=== PATIENT | female | born 1995 | race Two or more races ===

== ENCOUNTER → 2018-04-20 | Outpatient (CLI) | payer BC, OTHER ==
[~2018-04-20] MED LIST: DESO1TAB35 PO
== END ==
LOC: STAR 08:09
PROVIDERS: ATTEND Surgery
DX: Z02.9 Encounter for administrative examinations, unspecified (principal)

== ENCOUNTER 2018-04-27 05:34 | Day surgery (SDC) | payer BC, OTHER ==
[~2018-04-27] VITALS: Ht 170.2 cm; Wt 117.0 kg
[2018-04-27] MEDS ORDERED: LACTATED RINGERS 1,000 ML IV SCH (06:10)
[2018-04-27] MEDS ORDERED: EPINEPHRINE 1 MG/ML, 1ML ONE (06:19)
[2018-04-27] MEDS ORDERED: BUPIVACAINE/PF 0.5% ONE (06:19)
[2018-04-27 06:47] LABS: HCG UR SG 1.022 (1.003-1.030)
[2018-04-27] MEDS ORDERED: ONDANSETRON ODT 8 MG PO ONE (08:00)
[2018-04-27] MEDS ORDERED: GABAPENTIN 300 MG CAPSULE PO ONE (08:00)
[2018-04-27] MEDS ORDERED: ACETAMINOPHEN 500 MG TABLET PO ONE (08:00)
[2018-04-27] MEDS ORDERED: OxyconTIN ER 20 MG TAB.ER PO ONE (08:00)
[2018-04-27] MEDS ORDERED: FENTANYL PF 250 MCG/5ML ONE (08:01)
[2018-04-27] MEDS ORDERED: MIDAZOLAM 1 MG/ML, 2ML ONE (08:01)
[2018-04-27] MEDS ORDERED: PROPOFOL 10 MG/ML, 20ML ONE (08:02)
[2018-04-27] MEDS ORDERED: NEOSTIGMINE 1 MG/ML, 10ML ONE (08:03)
[2018-04-27] MEDS ORDERED: GLYCOPYRROLATE 0.4 MG/2 ML, 2ML ONE (08:03)
[2018-04-27] MEDS ORDERED: ROCURONIUM 10MG/ML,5ML ONE (08:03)
[2018-04-27] MEDS ORDERED: DEXAMETHASONE 4 MG/ML, 1ML ONE ×2 (08:06)
[2018-04-27] MEDS ORDERED: CEFOTETAN PMX 2GM/50ML 50 ML ONE (08:29)
[2018-04-27] MEDS ORDERED: PROMETHAZINE 25 MG SUPP PR PRN (09:00)
[2018-04-27] MEDS ORDERED: FENTANYL PF 100 MCG/2ML IV PRN (09:00)
[2018-04-27] MEDS ORDERED: MORPHINE SULFATE 4 MG/ML, 1ML IVPush PRN (09:00)
[2018-04-27] MEDS ORDERED: ONDANSETRON ODT 8 MG PO PRN (09:00)
[2018-04-27] MEDS ORDERED: OXYcodone 5 MG/5 ML ORAL.SOL UDC PO PRN (09:00)
[2018-04-27] MEDS ORDERED: PROMETHAZINE 25 MG/ML, 1ML IV PRN (09:00)
[2018-04-27] MEDS ORDERED: PROMETHAZINE 12.5 MG SUPP PR PRN (09:00)
[2018-04-27] MEDS ORDERED: HYDROmorphone 1 MG/ML, 1ML IV PRN (09:00)
[2018-04-27] MEDS ORDERED: KETOROLAC 30 MG/1 ML ONE (09:16)
[2018-04-27] MEDS ORDERED: MEPERIDINE/PF 50 MG/ML ONE (09:37)
[2018-04-27] MEDS: MEPERIDINE/PF 25MG/0.5ML IVPush PRN ×2 (09:40→09:51)
[2018-04-27] MEDS ORDERED: PROMETHAZINE 25 MG/ML, 1ML ONE (10:17)
[2018-04-27] MEDS ORDERED: HYDROcodone/APAP 5/325 TABLET PO PRN (11:30)
[2018-04-27] MEDS ORDERED: ONDANSETRON 2MG/ML, 2ML IVPush PRN (11:30)
[2018-04-27] MEDS: morphine SULFATE 10 MG/ML, 1ML IVPush PRN ×2 (11:35→12:16)
== END 2018-04-27 13:10 | disposition home or self-care (01) ==
LOC: OUT 05:34
PROVIDERS: ATTEND Surgery
DX: K80.10 Calculus of gallbladder with chronic cholecystitis without obstruction (principal); Z79.899 Other long term (current) drug therapy; Z98.890 Other specified postprocedural states; Z72.89 Other problems related to lifestyle
CPT/HCPCS: 47562; 81025; 88304; J0171; J1100; J1885; J2175; J2250; J2270; J2550; J2704; J2710; J3010; J3490; J7120; Q0162; S0074